=== PATIENT | female | born 1940 | race Two or more races ===

== ENCOUNTER 2024-04-05 19:09 | Emergency (ER) | payer MEDICARE, MEDICAID, SELFPAY ==
[2024-04-05 19:10] VITALS: BMI 24.0
[2024-04-05 19:25] VITALS: BP 155/64; PULSE 65; RESP 16; TEMP 36.5; O2SAT 99
--- NOTE | 2024-04-05 19:58 | PD.EDWOUND ---
ED Wound/Laceration-RME/HPI General Chief Complaint: Wound/Laceration Stated Complaint: Laceration to right 2nd digit Time Seen by Provider: 04/05/24 19:20 Arrival date/time: 04/05/24 19:09 RME / HPI RME / HPI narrative: 84-year-old female patient came in for evaluation regarding right index finger laceration. Incident happened earlier today while cooking, accidentally sustained a 1 cm gaping laceration to the right index finger palmar aspect. Patient is able to bend and extend the finger. There are concerned because bleeding will not stop since she is taking Eliquis 5 mg daily. Tetanus vaccination is unknown. Related Data Home Medications ?Medication ?Instructions ?Recorded ?Confirmed Benazepril Hcl * (LOTENSIN *) 10 mg PO QDAY #0 tabs 05/22/15 Levothyroxine * (SYNTHROID *) 100 mcg PO ACBR #0 tabs 05/22/15 apixaban 5 mg tablet (Eliquis) 5 mg PO QDAY ##0 05/22/15 carvedilol 3.125 mg tablet (Coreg) 3.125 mg PO BID #0 tabs 05/22/15 tramadol 50 mg tablet (Ultram) 100 mg PO BID PRN PAIN #0 tabs 05/22/15 Losartan Potassium * (COZAAR *) 50 mg PO QDAY #0 tabs 04/01/16 pravastatin 20 mg tablet 20 mg PO HS #0 tabs 04/01/16 (Pravachol) Previous Rx's ?Medication ?Instructions ?Recorded digoxin 0.25 mg/5 mL (250 mcg/5 0.25 mg (5 mL) PO QDAY PRN AD #10 04/02/16 mL) (50 mcg/mL) (5 mL) oral tabs solution amoxicillin 875 mg-potassium 1 tab PO BID #14 tabs 02/05/23 clavulanate 125 mg tablet Allergies Allergy/AdvReac Type Severity Reaction Status Date / Time Sulfa (Sulfonamide Allergy Severe Rash Verified 02/05/23 09:51 Antibiotics) Review of Systems Review of Systems Narrative Review of Systems: Review of system reviewed and within normal limits except mentioned in HPI ED Exam Narrative Physical exam: VITAL SIGNS: Reviewed. GENERAL APPEARANCE: Alert and interactive, follows commands, no acute distress, HEAD AND FACE: Non-traumatic. ENT: PERRL, pink conjunctivitis, eyelid no trauma, Mucous membrane moist. NECK: Supple, nontender, no nuchal rigidity. CHEST: No tenderness, no crepitus, no paradoxical movement, no retractions. LUNGS: Clear, well ventilated, symmetric, no rales, no wheezing, no ronchi, no stridor, good breath sounds bilaterally. HEART: Regular rate, regular rhythm, no murmur, no gallops. ABDOMEN: Soft, positive bowel sounds, nondistended, no guarding, nontender, no rebound, no masses, RECTAL: Deferred. GENITAL: Deferred. NEUROLOGICAL: Gross motor function intact sensory function intact, Appropriate for age. MUSCULOSKELETAL: low back nontender, full range of motion. EXTREMITIES: Nontender, full range of motion. SKIN: Color pink, dry, no rash, no lacerations, no abrasions, no contusions. LYMPHATICS: Deferred. Course Quality Measures none Orders Category Date Time Status Lidocaine 1% 20 ml [Xylocaine 1% 20 ML] Med 04/05/24 19:57 Discontinued 10 ml INFL X1 ONE Tet,Diphth,Pertuss(Acell)-Tdap [Boostrix Vacc] Med 04/05/24 19:57 Discontinued 0.5 ml IMI .ONCE ONE Vital Signs Vital signs: Vital Signs Temperature 97.7 F 04/05/24 19:25 Pulse Rate 65 04/05/24 19:25 Respiratory Rate 16 04/05/24 19:25 Blood Pressure 155/64 H 04/05/24 19:25 Pulse Oximetry (%) 99 04/05/24 19:25 Oxygen Delivery Method Room Air 04/05/24 19:25 Procedures -ED Laceration Laceration 1: Site: other (Index finger) Size (cm): 1 Description: linear Depth: simple, single layer Local Anesthetic: lidocaine 1% Amount of anesthesia used (mL): 5 Pre-repair: wound explored, irrigated extensively and deep structures intact Skin layer closed with: nylon Size (cm): 5-0 Number of sutures: 3 Technique: simple, interrupted Wound / Laceration MDM Narrative MDM Narrative:: 84-year-old female patient came in for evaluation regarding right index finger laceration. Incident happened earlier today while cooking, accidentally sustained a 1 cm gaping laceration to the right index finger palmar aspect. Patient is able to bend and extend the finger without any limitation. There are concerned because bleeding will not stop since she is taking Eliquis 5 mg daily. Tetanus vaccination is unknown. Repair and suturing was done by me see procedure notes Patient received Boostrix in the emergency room. Patient tolerated the procedure well. Patient appears nontoxic and hemodynamically stable. Patient discharged home and instructed to follow-up with primary care provider in 24 to 48 hours. Instructed to return to the emergency department immediately if worsening of symptoms Patient data External records reviewed:: None Clinical information provided by:: patient Social determinants that could affect healthcare access:: none Patient has the following chronic illnesses:: Hypertension chronic A-fib on Eliquis How is presenting disease/condition affected by chronic disease/condition?: uneffected by Evaluation data The following diagnostics were reviewed and interpreted by me:: other (specify) Lab and/or radiology exams considered but not ordered:: None Interpretation Summary: None Medications / Prescriptions Medications or Prescriptions considered but not ordered:: None Medication administrations:: Medication Administration History Discontinued Medications Diphtheria/Tetanus/Acell Pertussis (Diphth,Pertuss(Acell),Tet Vac 0.5 Ml Syr) 0.5 ml IMi .ONCE ONE Stop: 04/05/24 19:58 Lidocaine HCl (Lidocaine Hcl 1% 20 Ml Vial) 10 ml INFL X1 ONE Stop: 04/05/24 19:58 Boostrix and lidocaine Consultations Consultation(s) initiated? (list below): No Diagnosis Wound Differential Diagnosis: laceration, abrasion and avulsion of skin Most likely diagnosis given after review of the tests above:: Finger laceration Admission Indicated Admission indicated?: not indicated Explain why admission is indicated or not indicated:: Stable Admission Request Was there a request for admission?: No Disposition Plan Disposition Plan: Discharge Discharge Attestation Discharge Attestation: The patient and all family members were given an opportunity to ask questions and understood the discharge instructions. Discharge instructions specifically effects, indications for sooner follow up or return to the emergency department, and the expected course of current diagnosis. Patient condition: Stable Discharge Plan Plan Patient Disposition: HOME (Self Care) Disposition Comment: Stable Prescriptions/Referrals Prescriptions/Med Rec: No Action tramadol [Ultram] 50 MG tablet 100 mg PO BID PRN (Reason: PAIN) Qty: 0 Patient Comments: FOR PAIN, NOT TO EXCEED 8 TABS IN 24 HRS carvedilol [Coreg] 3.125 MG tablet 3.125 mg PO BID Qty: 0 apixaban [Eliquis] 5 MG tablet 5 mg PO QDAY Qty: 0 Benazepril Hcl * (LOTENSIN *) 10 MG tablet 10 mg PO QDAY Qty: 0 Levothyroxine * (SYNTHROID *) 100 MCG tablet 100 mcg PO ACBR Qty: 0 pravastatin [Pravachol] 20 MG tablet 20 mg PO HS Qty: 0 Losartan Potassium * (COZAAR *) 50 MG tablet 50 mg PO QDAY Qty: 0 digoxin 0.25 MG/5 ML solution 0.25 mg PO QDAY PRN (Reason: AD) Qty: 10 0RF amoxicillin-pot clavulanate 875-125 mg tablet 1 tab PO BID Qty: 14 0RF Problem List Clinical Impression: Finger laceration Patient/Caregiver Discharge Instructions Discharge Activity: activity as tolerated Education Materials: ED Laceration: All Closures Additional Instructions: Thank you for the opportunity for serving you today. You are stable for discharged . You are advised to: Follow-up with your PCP in 1 to 2 days Return to ED for worsening of symptoms Increase oral fluids Daily dressing with Neosporin as needed For removal of sutures in 7 days Print Language: [place]ayan Stand Alone Forms: Renetta Award Info., Patient Portal Info Letter PA/ANDREA Supervising Physician MEKHI/ANDREA Supervising Physician: Md Magdiel
[2024-04-05] MEDS: LIDOCAINE HCL 1% 20 ML VIAL 10 ML INFL (20:55)
[2024-04-05] MEDS: DIPHTH,PERTUSS(ACELL),TET VAC 0.5 ML SYR IMi (20:56)
[2024-04-05 21:07] VITALS: RESP 18
== END 2024-04-05 21:08 | disposition home or self-care (01) ==
LOC: SERX 20:59
PROVIDERS: Emergency Provider Emergency Medicine; PCP Physician Assistant
DX: S61.210A Laceration without foreign body of right index finger without damage to nail, initial encounter (principal); W45.8XXA Other foreign body or object entering through skin, initial encounter; Y93.G3 Activity, cooking and baking; Z23 Encounter for immunization
CPT/HCPCS: 12001; 90471; 90715; 99283; J3490